=== PATIENT | male | born 1980 | race Two or more races ===

== ENCOUNTER 2023-02-09 09:51 | Emergency (ER) | payer OTHER ==
[~2023-02-09] VITALS: Ht 175.3 cm; Wt 79.4 kg
== END 2023-02-09 12:08 | disposition home or self-care (01) ==
LOC: ER 09:51
DX: J10.1 Influenza due to other identified influenza virus with other respiratory manifestations (principal); J32.9 Chronic sinusitis, unspecified; Z88.6 Allergy status to analgesic agent; Z20.822 Contact with and (suspected) exposure to COVID-19

== ENCOUNTER 2025-01-27 13:06 | Inpatient (IN) | payer OTHER ==
[~2025-01-27] VITALS: Ht 175.3 cm; Wt 72.6 kg
[2025-01-27] MEDS ORDERED: 0.9 % SODIUM CHLORIDE 1,000 ML IV STA (13:41)
[2025-01-27 14:12] LABS: BASO % 0.0 % (0.1-1.2); EOS # 0.02 (0.04-0.54); EOS % 1.4 % (0.7-7.0); LYMPH # 0.37 (1.18-3.74); LYMPH % 25.9 % (19.3-53.1); MEAN PLATELET VOLUME 10.40 fl (9.4-12.4); MONO # 0.12 (0.24-0.82); MONO % 8.4 % (4.7-12.5); NEUT # 0.91 (1.56-6.13); NEUT % 63.6 % (34.0-71.1); RED CELL DISTRIBUTION WIDTH 11.5 % (11.6-14.4)
[2025-01-27 14:34] LABS: ALT/SGPT 91.0 U/L (12-78); AST/SGOT 96.0 U/L (15-37); BILIRUBIN TOTAL 0.97 mg/dL (0.3-1.2); BUN CREA RATIO 11.0 (7.0-25.0); CREATININE SERUM 0.8 mg/dL (0.70-1.30); GFR 105.5; GLOBULINA 3.5 G/DL (2.4-3.5); GLUCOSE FASTING 100.0 mg/dL (65-100); OSMOLALITY SERUM 269.0 MOSM/KG (275-295)
[2025-01-27 15:08] LABS: COVID-19 AG NEGATIVE (NEGATIVE)
[2025-01-27 15:17] LABS: URINE APPEARANCE Clear; URINE BACTERIA 4.7 uL (0.0-1933); URINE BILIRRUBIN Negative (NEGATIVE); URINE BLOOD Negative; URINE COLOR Dark Yellow; URINE EPITHELIAL CELLS 3.2 uL (0.0-38.8); URINE GLUCOSE Negative (NEGATIVE); URINE KETONE Trace (NEGATIVE); URINE LEUKOCYTE Negative; URINE NITRATE Negative; URINE PROTEIN 100 (NEGATIVE); URINE RBC 9.0 uL (0.0-20.8); URINE UROBILINOGEN 0.2 E.U./dl; URINE WBC 6.1 uL (0.0-23.2)
[2025-01-27 15:18] LABS: URINE CAST 0.00 uL (0.0-1.40)
[2025-01-27] MEDS ORDERED: PANTOPRAZOLE SODIUM 40 MG/VIAL VIAL IV SCH (18:41)
[2025-01-27] MEDS ORDERED: OSELTAMIVIR PHOSPHATE 75 MG CAPSULE PO SCH (18:41)
[2025-01-27] MEDS ORDERED: ACETAMINOPHEN 500 MG GEL..CAP PO PRN (18:45)
[2025-01-27] MEDS ORDERED: ONDANSETRON HCL 4 MG in 0.9 % SODIUM CHLORIDE 50 ML IV PRN (18:45)
[2025-01-27] MEDS ORDERED: 0.9 % SODIUM CHLORIDE 1,000 ML IV SCH (18:45)
[2025-01-27 21:06] VITALS: BP 113/75
[2025-01-27 21:11] LABS: INR 1.06
[2025-01-27 22:31] VITALS: BP 124/72; O2SAT 96
[2025-01-28 00:57] VITALS: BP 118/70; O2SAT 97
[2025-01-28 08:00] VITALS: BP 102/65; O2SAT 98
[2025-01-28 17:10] VITALS: BP 96/65; O2SAT 95
[2025-01-28] MEDS ORDERED: MULTIVIT INFUSN,ADULT 4,VIT K 10 ML VIAL IV SCH (19:40)
[2025-01-28] MEDS ORDERED: Cyanocobalamin/Mecobalamin 1 TAB.SL SL SCH (19:40)
[2025-01-29 01:35] VITALS: BP 105/65; O2SAT 97
[2025-01-29 07:22] LABS: BASO % 1.3 % (0.1-1.2); EOS # 0.17 (0.04-0.54); EOS % 5.4 % (0.7-7.0); LYMPH # 1.32 (1.18-3.74); LYMPH % 42.2 % (19.3-53.1); MEAN PLATELET VOLUME 11.70 fl (9.4-12.4); MONO # 0.39 (0.24-0.82); NEUT # 1.19 (1.56-6.13); NEUT % 38.0 % (34.0-71.1); RED CELL DISTRIBUTION WIDTH 11.9 % (11.6-14.4)
[2025-01-29 07:33] LABS: MONO % 12.5 % (4.7-12.5)
[2025-01-29 07:56] LABS: ALT/SGPT 137.0 U/L (12-78); AST/SGOT 86.0 U/L (15-37); BILIRUBIN TOTAL 0.72 mg/dL (0.3-1.2); BUN CREA RATIO 15.0 (7.0-25.0); CREATININE SERUM 0.52 mg/dL (0.70-1.30); GFR 173.45; GLOBULINA 2.7 G/DL (2.4-3.5); GLUCOSE FASTING 84.0 mg/dL (65-100); OSMOLALITY SERUM 277.0 MOSM/KG (275-295)
[2025-01-29 08:00] VITALS: BP 96/61; O2SAT 95
[2025-01-29 16:00] VITALS: BP 104/67; O2SAT 98
[2025-01-30 01:32] VITALS: BP 152/78; O2SAT 97
[2025-01-30 08:00] VITALS: BP 109/67; O2SAT 99
[2025-01-30 08:01] LABS: BASO % 1.3 % (0.1-1.2); EOS # 0.18 (0.04-0.54); EOS % 3.8 % (0.7-7.0); LYMPH # 2.40 (1.18-3.74); LYMPH % 50.4 % (19.3-53.1); MEAN PLATELET VOLUME 10.80 fl (9.4-12.4); MONO # 0.54 (0.24-0.82); MONO % 11.3 % (4.7-12.5); NEUT # 1.56 (1.56-6.13); NEUT % 32.8 % (34.0-71.1); RED CELL DISTRIBUTION WIDTH 11.9 % (11.6-14.4)
[2025-01-30 09:28] LABS: BAND MAN 10.0 %; EOSINOPHIL MAN 4.0 %; LYMPHOCYTE MAN 30.0 %; MONOCYTE MAN 11.0 %; NEUTROPHILS MAN 23.0 %
[2025-01-30] MEDS ORDERED: OSEL75CA PO (15:52)
[2025-01-30] MEDS ORDERED: B Complex PO (15:52)
[2025-01-30] MEDS ORDERED: Neurin-Sl Tablet Sl SL (15:52)
== END 2025-01-30 17:23 | disposition home or self-care (01) | DRG 194 ==
LOC: ER 13:30 → SURH 18:48 → MEDI 18:48 → SEC-K 20:20 → SURH 20:56
PROVIDERS: Emergency Medicine; General Practice; ADMIT Internal Medicine; ATTEND Internal Medicine
PROC: BW40ZZZ Ultrasonography of Abdomen (ICD-10-PCS; principal; 2025-01-27)
PROC: 8E0ZXY6 Isolation (ICD-10-PCS; 2025-01-27)
DX: J10.1 Influenza due to other identified influenza virus with other respiratory manifestations (principal); A90 Dengue fever [classical dengue]; B34.9 Viral infection, unspecified; D50.9 Iron deficiency anemia, unspecified; D72.819 Decreased white blood cell count, unspecified; D69.6 Thrombocytopenia, unspecified; E86.0 Dehydration; Z20.822 Contact with and (suspected) exposure to COVID-19; Z88.8 Allergy status to other drugs, medicaments and biological substances